=== PATIENT | male | born 1960 | race Caucasian/White ===

== ENCOUNTER 2016-11-12 11:15 | Outpatient (RCR) | payer BC ==
[~2016-11-12 11:15] MED LIST: FLUT16SP NS
--- NOTE | 2016-11-12 13:04 | PT/OT/ST INITIAL EVALUATION ---
Department of Health and Human Services Form Approved Health Care Financing Administration OMB No. [id number] PLAN OF CARE/ASSESSMENT FOR OUTPATIENT REHABILITATION (Complete for Initial Claims Only) 1. PATIENT'S NAME Gus Martini 2. ACC # [id number] 3. [facility] [id number] 4. [place]. [id number] 5. TYPE: PT 6. PRIOR HOSPITALIZATION None 7. PRIMARY DX Cervicalgia 8. SECONDARY DX Neck and right shoulder pain 9. ONSET DATE 08/2016 10. REFERRAL DATE 11/06/2016 11. SOC. DATE 11/06/2016 12. TIME OF EVAL 7:30 a.m. 12. REFERRING PHYSICIAN Self 13. CHARGES/UNITS Evaluation Manual therapy Ultrasound 14. G CODES 15. PRIOR LEVEL OF FUNCTION; PERTINENT HISTORY (Prior therapy results, reason for referral.) S: Reason for referral: The patient was a self-referral to physical therapy for neck and shoulder pain. The patient reports he has been experiencing pain that has gradually increased in intensity over the last couple of months. 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 The patient reports the pain is constant from a dull ache to a sharp pain. He does experience some headaches occasionally. Patient has also arranged his work station to help eliminate discomfort. 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 Pain level: Current pain rating is 6/10 Diagnostic testing: None Past medical history: HTN Current medications: Tylenol as needed Personal health rating: Fair Patient's Goal: The patient's goal for therapy is pain relief. 16. INITIAL ASSESSMENT/SAFETY PRECAUTIONS/MEDICAL COMPLICATIONS (Level of function at start of care. Be specific, use objective measures, list problems.) O: APPEARANCE, OBSERVATION AND GAIT: The patient is a slender healthy looking 56-year-old male. He demonstrates slight forward head posture. PALPATION: The patient has tenderness to palpation at his right upper trap, levator scapular muscle belly and right suboccipital region. The patient also has tenderness and tightness noted at this right first rib region. RANGE OF MOTION/FLEXIBILITY: Cervical range of motion. Flexion normal limits. Extension normal limits. Right rotation 65 degrees. Left rotation 63 degrees. Left side bending normal limits. Right side bending 50 percent. Shoulder range of motion was normal limits in all direction. Cervical joint mobility normal limits. No significate limitations noted. Patient did demonstrate mild tightness along his right upper trap and levator scapular muscle belly. STRENGTH: Shoulder strength and neurology physician strength were 5/5 manual muscle tests. TODAY'S TREATMENT: Treatment included initial evaluation followed by manual stretching and mobilization to patient's neck, upper trap, levator scapular muscle belly. The patient was then instructed on home exercise program for gentle flexibility and postural exercises. Treatment was ended with ultrasound to patient's right upper trap, levator scapula at 1 point on megahertz at 1.5 carbajal per centimeters for 10 minutes. 17. INITIAL POC: (Specify procedures, modalities, short and application support manager goals) A: The patient presents to physical therapy with increased muscle tension and tightness at right levator scapula. PROGNOSIS: The patient is a good candidate for physical therapy to regain full flexibility and eliminate pain. SHORT TERM GOALS: 1. The patient to be compliant with home exercise program in 1 week. 2. The patient to report 50 percent less pain and headaches with normal daily activities in 4 weeks. 3. The patient to demonstrate full cervical motion in all directions without pain. 4. The patient to report he is able to perform normal daily activities without pain in 6 weeks. P: The patient will be seen 2 times a week over the next 6 weeks. Treatment will include modalities, manual therapy to decrease pain and inflammation. We will progress patient with range of motion, flexibility and postural stabilization exercises. 18. FREQUENCY 19. DURATION 20. FUNCTIONAL LEVEL (End of claim period) 21. PHYSICIAN SIGNATURE ? ON FILE OR ENTER HERE: 22. DATE: I certify the need for these services furnished under this plan of care and if for partial hospitalization. 23. CERTIFICATION FROM THROUGH [facility]700
== END 2016-11-16 10:49 | disposition home or self-care (01) ==
LOC: PT 11:15
PROVIDERS: ATTEND Family Medicine
DX: M54.2 Cervicalgia (principal); M25.511 Pain in right shoulder